=== PATIENT | female | born 1995 | race Caucasian/White ===

== ENCOUNTER 2018-12-10 19:19 | Emergency (ER) | payer BC, OTHER ==
--- NOTE | 2018-12-10 19:30 | ED Physician Documentation ---
General Adult - HISTORIAN Historian: patient - HPI Stated Complaint: abdominal pain Chief Complaint: Abdominal Pain Onset: days ago (7) Timing: still present Severity: mild Further Comments: yes (She states about one week ago she started with abdominal pain with her direction she indicates is epigastric and is "sometimes" more with eating and directly after eating she has nausea . She alsow has started in last few days of lower bilateral abdominal pain/cramping. mild pain with urination. No vaginal concerns. Finished period over a week ago. No fever. No blood in urine) Last known Well Code/Unknown Code: Unknown - ROS CONST: no problems EYES/ENT: none CVS/RESP: none GI/: abdominal pain MS/SKIN/LYMPH: none - PAST HX Past History: none Other History: none Surgeries/Procedures: none Immunizations: UTD Allergies/Adverse Reactions: Allergies Allergy/AdvReac Type Severity Reaction Status Date / Time No Known Drug Allergies Allergy Verified 12/10/18 19:41 Home Medications: Ambulatory Orders Medication Instructions Recorded Norgestimate-Ethinyl Estradiol 1 tab PO DAILY 12/10/18 [Tri-Sprintec Tablet] - SOCIAL HX Smoking History: non-smoker Alcohol Use: none Drug Use: none - FAMILY HX Family History: No - REVIEWED ASSESSMENTS Nursing Assessment Reviewed: Yes Vitals Reviewed: Yes Progress - Progress Progress: 2121: awaiting results of CT resting quietly in the room DG 2154: discussed results and plan she is agreeable DG ED Results Lab/Radiology - Radiology Radiology Impressions: T of the abdomen and pelvis with contrast Clinical history: Lower abdominal pain for 1 week. Nausea and vomiting. Contrast administered: 90 mL of Omnipaque. Technique: CT of the abdomen and pelvis is performed with intravenous administration of contrast. Sagittal and coronal reconstructions were performed by the technologist. Findings: Visualized lung bases are clear. The liver and spleen demonstrate normal attenuation without focal defect. Gallbladder is normally distended. There is no pancreatic or adrenal abnormality. The kidneys demonstrate symmetric enhancement. There is no retroperitoneal mass or significant adenopathy. Appendix is visualized and is within normal limits. Gas and stool are present throughout the colon. Uterus and adnexal structures are within normal limits. There are bilateral ovarian follicles. There is a filling defect in left side of the bladder measuring 9 mm in size. Bladder malignancy would be unusual given the patient's age but noncalcified stone, ureterocele or benign neoplasm cannot be excluded. Blood clot is also consideration. Direct visualization is recommended for better evaluation. There is no free fluid in the pelvis and no other pelvic mass. Impression: 1. 9 mm filling defect left side of the bladder. Rule out tumor. 2. Ovarian follicles. 3. Negative appendix. Electronically signed on Dec 10, 2018 9:34:50 PM CDT by: Art Gomez General Adult Physical Exam - PHYSICAL EXAM GENERAL APPEARANCE: no distress EENT: eye inspection normal, no signs of dehydration NECK: normal inspection RESPIRATORY: no resp distress, chest non-tender, breath sounds normal CVS: reg rate & rhythm, heart sounds normal ABDOMEN: soft, tenderness (bilateral lower abdomen with palpation. ). No: McBurney's point tenderne, rebound BACK: normal inspection SKIN: warm/dry, normal color EXTREMITIES: non-tender, normal range of motion, no evidence of injury, no edema NEURO: oriented X3 Discharge Clincal Impression: Bladder filling defect UTI (urinary tract infection) Qualifiers: Urinary tract infection type: site unspecified Hematuria presence: without hematuria Qualified Code(s): N39.0 - Urinary tract infection, site not specified Referrals: Chari Harrison MD [Primary Care Provider] - 2 Days Comments: 1. Bactrim DS take 1 by mouth twice daily x 10 days 2. Pyridum 100 mg take 1 by mouth three times per day x 3 days 3. INCREASE fluids 4. Zantac 150 mg take 1 by mouth twice daily 5. Zofran 4 mg take 1 by mouth every 8 hours as needed for nausea 6. Follow up with PCP In 2-4 days 7. Return to ER for any increasing concerns Condition: Stable Disposition: 01 HOME, SELF-CARE Decision to Admit: NO Date of Decison to Admit: 12/10/18 Decision Time: 21:56
[2018-12-10] MEDS: 0.9 % SODIUM CHLORIDE 1,000 ML IV ONE (20:45)
[2018-12-10] MEDS: SULFAMETHOXAZOLE/TRIMETHOPRIM 800/160MG TAB PO ONE (22:00)
[2018-12-10] MEDS: PHENAZOPYRIDINE HCL 200 MG TABLET PO ONE (22:00)
[2018-12-10 22:52] VITALS: BP 141/81
[2018-12-11 06:41] LABS: BASOPHILS % 0.7 % (0.0-1.5); NEUTROPHILS # 6.4 # k/uL (1.4-7.7); eGFR (Non-African) > 60
[2018-12-11 07:09] LABS: APPEARANCE,URINE CLOUDY (CLEAR); COLOR,URINE YELLOW (YELLOW); OCCULT BLOOD,URINE NEGATIVE (NEGATIVE)
[2018-12-11 07:10] LABS: URINE HCG NEGATIVE (NEGATIVE); UROBILINOGEN URINE 0.2 Eu (0.2-1.0)
--- NOTE | 2018-12-11 14:32 | Diagnostic Imaging Report ---
GOLD GARCIA [facility] [address] [facility] [address] [place], [place]. [address] Report Submission Date: Dec 10, 2018 9:34:50 PM CDT Patient Study Name: ERNIE MARTINEZ Date: Dec 10, 2018 8:58:10 PM CDT Modality Type: CT\SR Gender: F Description: CT ABD PELVIS W/ CON : 97 Institution: [facility] Physician: GOLD GARCIA CT of the abdomen and pelvis with contrast Clinical history: Lower abdominal pain for 1 week. Nausea and vomiting. Contrast administered: 90 mL of Omnipaque. Technique: CT of the abdomen and pelvis is performed with intravenous administration of contrast. Sagittal and coronal reconstructions were performed by the technologist. Findings: Visualized lung bases are clear. The liver and spleen demonstrate normal attenuation without focal defect. Gallbladder is normally distended. There is no pancreatic or adrenal abnormality. The kidneys demonstrate symmetric enhancement. There is no retroperitoneal mass or significant adenopathy. Appendix is visualized and is within normal limits. Gas and stool are present throughout the colon. Uterus and adnexal structures are within normal limits. There are bilateral ovarian follicles. There is a filling defect in left side of the bladder measuring 9 mm in size. Bladder malignancy would be unusual given the patient's age but noncalcified stone, ureterocele or benign neoplasm cannot be excluded. Blood clot is also consideration. Direct visualization is recommended for better evaluation. There is no free fluid in the pelvis and no other pelvic mass. Impression: 1. 9 mm filling defect left side of the bladder. Rule out tumor. 2. Ovarian follicles. 3. Negative appendix. Electronically signed on Dec 10, 2018 9:34:50 PM CDT by: Art CORTES
== END 2018-12-10 22:37 | disposition home or self-care (01) ==
LOC: ED 19:19
DX: N32.89 Other specified disorders of bladder (principal); N39.0 Urinary tract infection, site not specified
CPT/HCPCS: 36415; 74177; 80053; 81002; 81025; 85025; 87086; 96360; 99283; 99284; A9270; J7030; Q9967; 96374; S1016

== ENCOUNTER 2019-03-04 18:03 | Emergency (ER) | payer OTHER ==
--- NOTE | 2019-03-04 18:08 | ED Physician Documentation ---
Abdominal Pain - HISTORIAN Historian: patient - HPI Stated Complaint: upper abdominal pain and lower pelvic pain x 1 day Chief Complaint: Abdominal Pain Onset: days ago (1) Duration: constant Timing: still present Context: denies: out of country travel, bad food, recent trauma Severity: mild (4/10 ) Quality: sharp, fullness Associated Symptoms: none Exacerbated by: nothing Relieved by: nothing Further Comments: yes (She states she has abdominal pain upper abdomen over entire upper abdomen and then she reports on and off pain lower pelvic pain. She denies fever. Her period was less this month she had some brown discharge x 2 days then nothing x 1 day and today some mild amount of bleeding. NO fever. No nausea or vomiting. She is sexually active. No vaginal discharge.) - ROS CONST: no problems CVS/RESP: none EYES/ENT: none MS/SKIN/LYMPH: none - SOCIAL HX Smoking History: non-smoker Alcohol Use: none Drug Use: none - FAMILY HX Family History: none - PAST HX Past History: none Ischemic Bowel Risk Factors: none Other History: none Surgeries/Procedures: none Immunizations: UTD - REVIEWED ASSESSMENTS Nursing Assessment Reviewed: Yes Vitals Reviewed: Yes <Alessandra Gao - Last Filed: 03/04/19 18:51> <Jami Wheat - Last Filed: 03/04/19 20:16> - PAST HX Home Medications: Ambulatory Orders Medication Instructions Recorded Norgestimate-Ethinyl Estradiol 1 tab PO DAILY 12/10/18 [Tri-Sprintec Tablet] Nitrofurantoin Monohyd/M-Cryst 100 mg PO BID #14 capsule 03/04/19 [Macrobid 100 mg Capsule] Allergies/Adverse Reactions: Allergies Allergy/AdvReac Type Severity Reaction Status Date / Time No Known Drug Allergies Allergy Verified 03/04/19 18:24 - VITAL SIGNS Vital Signs: Vital Signs Temp Pulse Resp BP Pulse Ox 99.0 F 110 H 16 152/83 95 03/04/19 18:04 03/04/19 18:04 03/04/19 18:04 03/04/19 18:04 03/04/19 18:04 Progress <Alessandra Gao - Last Filed: 03/04/19 18:51> - Progress Progress: 1850: care will be turned over to oncoming provider Philipp Weekly PI/SENIOR RESEARCH ASSOCIATE DG (Alessandra Gao) ED Results Lab/Radiology <Jami Wheat - Last Filed: 03/04/19 20:16> - Radiology Radiology Impressions: Abdomen series with chest radiograph History: Abdominal pain Findings: Included chest radiograph demonstrates no active pulmonary disease. The bowel gas pattern is normal. There is no bowel obstruction, free intraperitoneal air or pathologic calcification. Impression: Normal bowel gas pattern. Electronically signed on Mar 04, 2019 7:25:52 PM STRATEGIC PLANNER by: Amol Dhillon (Jami Wheat) - Orders Orders: ED Orders Category Date Time Status ABD SERIES PA CHEST [RAD] Stat Exams 03/04/19 Completed Abdominal Pain Physical Exam - Physical Exam General Appearance: no acute distress, alert EENT: eye inspection normal, pharynx normal, no signs of dehydration NECK: normal inspection RESPIRATORY: no resp distress, chest non-tender, breath sounds normal CVS: reg rate & rhythm, heart sounds normal ABDOMEN: soft, tenderness (upper directly below rib with palpaiton and bilateral pelvic pain with palpation. ). No: abnormal bowel sounds, McBurney's point tenderne, guarding BACK: normal inspection, no CVA tenderness SKIN: warm/dry, normal color EXTREMITIES: non-tender NEURO: oriented X3 <Alessandra Gao - Last Filed: 03/04/19 18:51> - Physical Exam Vital Signs: Vital Signs Temp Pulse Resp BP Pulse Ox 99.0 F 110 H 16 152/83 95 03/04/19 18:04 03/04/19 18:04 03/04/19 18:04 03/04/19 18:04 03/04/19 18:04 Discharge <Alessandra Gao - Last Filed: 03/04/19 18:51> Decision to Admit: NO Decision Time: 20:14 <Jami Wheat - Last Filed: 03/04/19 20:16> Clincal Impression: UTI (urinary tract infection) Referrals: Chari Harrison MD [Primary Care Provider] - 2 Days Additional Instructions: Take Macrobid (Nitrofuratonin) 100 mg by mouth twice a day for 7 days Keep drinking plenty of water Increase protein; decrease carbs Exercise as you can Follow up with PCP next week as needed Comments: Discussed changes in diet; more protein and less carbs; will treat UTI (blood in urine possibly d/t menses); she has been passing gas; 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 Increase fluid intake. If not better in a week with changes follow up with PCP or return to the ER. (Jami Wheat) Condition: Good Disposition: 01 HOME, SELF-CARE
[2019-03-04 18:29] VITALS: BP 152/83
--- NOTE | 2019-03-04 19:29 | Diagnostic Imaging Report ---
PATIENT MR#: [id number] PATIENT PATIENT NAME: ERNIE MARTINEZ DATE OF : 1995 REFERRING PHYSICIAN: Alessandra Gao EXAM DATE: 03/04/2019 ACCESSION NUMBER: [id number] EXAM DESCRIPTION: ABD SERIES PA CHEST Abdomen series with chest radiograph History: Abdominal pain Findings: Included chest radiograph demonstrates no active pulmonary disease. The bowel gas pattern i s normal. There is no bowel obstruction, free intraperitoneal air or pathologic calcification. Impression: Normal bowel gas pattern. Read by: Dr. Amol Dhillon Transcribed by: Transcribed Date: Electronically signed by: Dr. Amol Dhillon Date signed: 03/04/2019 7:29:00 PM
[2019-03-04] MEDS ORDERED: NITROFURANTOIN MONO/MACRO 100 MG CAPSULE PO ONE (20:09)
[2019-03-05 06:13] LABS: APPEARANCE,URINE CLEAR (CLEAR); COLOR,URINE YELLOW (YELLOW)
[2019-03-05 06:14] LABS: OCCULT BLOOD,URINE TRACE (NEGATIVE); UROBILINOGEN URINE 0.2 Eu (0.2-1.0)
== END 2019-03-04 20:18 | disposition home or self-care (01) ==
LOC: ED 18:03
DX: N39.0 Urinary tract infection, site not specified (principal)
CPT/HCPCS: 74022; 81002; 87086; 99283

== ENCOUNTER 2019-03-24 10:18 | Outpatient (CLI) | payer OTHER | END 2019-03-24 10:23 | LOC: LAB 10:18 | PROVIDERS: ATTEND Family Medicine | DX: R30.0 Dysuria (principal) | CPT/HCPCS: 87086 ==

== ENCOUNTER 2019-04-09 08:50 | Outpatient (CLI) | payer OTHER ==
--- NOTE | 2019-04-09 09:59 | Diagnostic Imaging Report ---
PATIENT MR#: [id number] PATIENT PATIENT NAME: ERNIE MARTINEZ DATE OF : 1995 REFERRING PHYSICIAN: Chari Harrison EXAM DATE: 04/09/2019 ACCESSION NUMBER: [id number] EXAM DESCRIPTION: US ABDOMEN LIMITED Ultrasound abdomen limited History: Generalized abdominal pain. History of bladder tumor removal. Transverse and longitudinal images were obtained through the right upper quadrant. No pancreatic abnormalities are noted. The liver demonstrates homogeneous echotexture without eviden t mass. There is normal hepatopetal flow to the main portal vein. The right kidney measures 11.7 cm in length and dem onstrates no hydronephrosis or evident mass. The gallbladder is normal without gallstones or gallbladder wall thi ckening. The common bile duct is normal in caliber measuring 5.2 mm. Impression: Normal right upper quadrant ultrasound. Read by: Dr. Kathya Brown Transcribed by: Transcribed Date: Electronically signed by: Dr. Kathya Brown Date signed: 04/09/2019 9:58:31 AM
== END 2019-04-09 09:00 ==
LOC: RAD 08:50
PROVIDERS: ATTEND Family Medicine
DX: R10.84 Generalized abdominal pain (principal)